=== PATIENT | male | born 1970 | race Caucasian/White ===

== ENCOUNTER 2019-02-23 14:45 | Emergency (ER) | payer MEDICAID ==
[~2019-02-23] VITALS: Ht 175.3 cm; Wt 72.6 kg
[2019-02-23 14:47] VITALS: BP 132/67
--- NOTE | 2019-02-23 14:51 | NUR ---
PT BROUGHT IN BY [facility] TO [facility]
--- NOTE | 2019-02-23 14:53 | NUR ---
pre-book evaluation of open wound on left hand with mild swelling---pt admits its weeks old
[2019-02-23 15:26] VITALS: BP 132/67
--- NOTE | 2019-02-23 15:26 | NUR ---
PATIENT EXAMINED BY DR. MYLES. PATIENT MEDICALLY CLEARED AND RELEASED IN CUSTODY IN STABLE CONDITION. ORIGINAL PRE-BOOK FORM WITH A COPY WAS GIVEN TO OFFICER NEHEMI[facility]. [facility]
== END 2019-02-23 15:26 ==
LOC: MED 14:45
DX: L02.512 Cutaneous abscess of left hand (principal); Z02.89 Encounter for other administrative examinations
CPT/HCPCS: 99283

== ENCOUNTER 2020-01-12 06:45 | Emergency (ER) | payer MEDICAID ==
[~2020-01-12] VITALS: Ht 175.3 cm; Wt 77.1 kg
[2020-01-12 06:53] VITALS: BP 137/73
--- NOTE | 2020-01-12 07:05 | NUR ---
49 Y/O MALE BROUGHT IN BY POLICE-PREBOOK. FOR HEP C PRECAUTION. [facility]; [facility]
== END 2020-01-12 07:50 | disposition left against medical advice (07) ==
LOC: MED 06:45
DX: S60.551A Superficial foreign body of right hand, initial encounter (principal); Z53.21 Procedure and treatment not carried out due to patient leaving prior to being seen by health care provider; Z86.19 Personal history of other infectious and parasitic diseases; W46.0XXA Contact with hypodermic needle, initial encounter; Y93.89 Activity, other specified; Y92.89 Other specified places as the place of occurrence of the external cause; Y99.8 Other external cause status

== ENCOUNTER 2021-12-13 13:48 | Emergency (ER) | payer SELFPAY ==
[~2021-12-13] VITALS: Ht 175.3 cm; Wt 88.5 kg
--- NOTE | 2021-12-13 13:52 | NUR ---
[facility] TO ER BED 10
[2021-12-13 13:54] VITALS: BP 141/96
--- NOTE | 2021-12-13 14:00 | NUR ---
51 y/o M BIBA found in [facility] restroom by employees patient unresponsive. Per EMS, pt awaken by employees and presented A&Ox4/emotional. EMS states syringes found by pt; states drug use denies specific drug. Denies S.I.; c/o mouth/throat "dryness" x 1 day. EMS BS 109. Pt placed into gown and panel monitor with VSS; respirations 14. Bed locked in lowest position, side rails x 1. PMH: substance abuse NKDA Meds: Denies
--- NOTE | 2021-12-13 15:08 | NUR ---
Dr. Ferrera evaluating pt at bedside.
--- NOTE | 2021-12-13 15:48 | NUR ---
Patient noted with increased lethargy; arousal to voice A&Ox4 at this time RR 9 SpO2 93% on room air. Pt states he feels drowsy and states "I think Narcan will be good." Dr. Ferrera made aware.
--- NOTE | 2021-12-13 15:52 | NUR ---
Dr. Ferrera at bedside
[2021-12-13 18:10] VITALS: BP 128/76
--- NOTE | 2021-12-13 18:11 | NUR ---
Patient at bedside states he is going to leave. I advised patient to remain seated for pending discharge paperwork. Pt states "I gotta go" and ambulated out of facility. Dr. Ferrera made aware.
--- NOTE | 2021-12-13 18:15 | NUR ---
PATIENT LEFT WITHOUT D/C PAPERWORK. DUAL SIGNATURES VIA RN TO BE OBTAINED
== END 2021-12-13 18:15 | disposition home or self-care (01) ==
LOC: MED 13:48
DX: J39.2 Other diseases of pharynx (principal); T40.415A Adverse effect of fentanyl or fentanyl analogs, initial encounter; R68.2 Dry mouth, unspecified; Y92.89 Other specified places as the place of occurrence of the external cause
CPT/HCPCS: 99283